=== PATIENT | female | born 1995 | race Hispanic/Latino ===

== ENCOUNTER 2017-12-24 13:28 | Emergency (ER) | payer BC ==
[2017-12-24 14:01] VITALS: BP 120/82; PULSE 66; RESP 16; TEMP 98.6; O2SAT 99; BMI 38.2
--- NOTE | 2017-12-24 14:27 | ED PDOC ---
Arrival/HPI - General Chief Complaint: Back Pain Time Seen by Provider: 12/24/17 14:21 Historian: Patient - History of Present Illness Narrative History of Present Illness (Text): 12/24/17 14:23 Pt is a 22 yr old female with a PMH of DDD since 2012, who presents today for LBP exacerbation while working yesterday. Pt states having herniated discs and associated sciatica that radiates to the knees of both lower extremities. States she takes Aleve at times and completed PT course but continues to have stiffness. Denies change in bladder or bowel, altered sensation, weakness of LE , fever, chills, sob, or any other complaints. Time/Duration: 24 hours Symptom Onset: Gradual Symptom Course: Unchanged Quality: Aching Severity Level: 8 Activities at Onset: Rest, Light Context: Work Past Medical History - Provider Review Nursing Documentation Reviewed: Yes - Travel History Have you recently traveled outside [place] w/in the past 3 mons?: No - Past History Past History: No Previous - Infectious Disease Hx of Infectious Diseases: None - Tetanus Immunization Tetanus Immunization: Up to Date - Reproductive Menopause: No - Past Medical History Past Medical History: No Previous - Cardiac Hx Cardiac Disorders: No - Pulmonary Hx Respiratory Disorders: No - Neurological Hx Neurological Disorder: No - HEENT Hx HEENT Disorder: No - Renal Hx Renal Disorder: No - Endocrine/Metabolic Hx Endocrine Disorders: No - Hematological/Oncological Hx Blood Disorders: No - Integumentary Hx Dermatological Disorder: No - Gastrointestinal Hx Gastrointestinal Disorders: No - Genitourinary/Gynecological Hx Sexually Transmitted Diseases: Yes (genital herpes) - Psychiatric Hx Depression: No Hx Emotional Abuse: No Hx Physical Abuse: No Hx Substance Use: Yes (marijuana) - Past Surgical History Past Surgical History: No Previous - Suicidal Assessment Feels Threatened In Home Enviroment: No Family/Social History - Physician Review Nursing Documentation Reviewed: Yes Family/Social History: Unknown Family HX Smoking Status: Former Smoker Hx Alcohol Use: Yes Hx Substance Use: Yes (marijuana) Hx Substance Use Treatment: No Allergies/Home Meds Allergies/Adverse Reactions: Allergies No Known Allergies Allergy (Verified 07/31/16 15:15) Home Medications: Home Meds Medication Instructions Recorded Confirmed Valacyclovir HCl [Valtrex] 500 mg PO BID 12/14/15 07/31/16 Review of Systems - Review of Systems Constitutional: Normal Eyes: Normal ENT: Normal Respiratory: Normal Cardiovascular: Normal Gastrointestinal: Normal Genitourinary Female: Normal Musculoskeletal: Arthralgias, Back Pain Skin: Normal Neurological: Normal Endocrine: Normal Hemo/Lymphatic: Normal Psychiatric: Normal Physical Exam Vital Signs Reviewed: Yes Vital Signs Temp Pulse Resp BP Pulse Ox 12/24/17 13:59 98.6 F 66 16 120/82 99 Temperature: Afebrile Blood Pressure: Normal Pulse: Regular Respiratory Rate: Normal Appearance: Positive for: Well-Appearing, Non-Toxic, Comfortable Pain Distress: Moderate Mental Status: Positive for: Alert and Oriented X 3 - Systems Exam Head: Present: Atraumatic, Normocephalic Conjunctiva: Present: Normal Mouth: Present: Moist Mucous Membranes Neck: Present: Normal Range of Motion Respiratory/Chest: Present: Clear to Auscultation, Good Air Exchange. No: Respiratory Distress, Accessory Muscle Use Cardiovascular: Present: Regular Rate and Rhythm, Normal S1, S2. No: Murmurs Abdomen: No: Tenderness, Distention, Peritoneal Signs Back: Present: Normal Inspection, Paraspinal Tenderness (Left SI jt pain on palpation; point tender to piriformis b/l), Pain with Leg Raise (left leg). No : CVA Tenderness, Midline Tenderness Upper Extremity: Present: Normal Inspection, Normal ROM, NORMAL PULSES. No: Cyanosis, Edema, Tenderness Lower Extremity: Present: Normal Inspection, NORMAL PULSES, Normal ROM. No: Edema, CALF TENDERNESS Neurological: Present: GCS=15, CN II-XII Intact, Speech Normal, Motor Func Grossly Intact, Normal Sensory Function Skin: Present: Warm, Dry, Normal Color. No: Rashes Psychiatric: Present: Alert, Oriented x 3, Normal Insight, Normal Concentration Medical Decision Making ED Course and Treatment: 12/24/17 14:27 Impression Pt is a 22 yr old female with a chronic LBP since 2012, who presents today for exacerbation while working yesterday. Working Dx: chronic low back pain due to DDD Plan Toradol 30 mg IM assess and dispo Progress Note Referral to spine and pain specialist Cheryl Ambulating well and VSS on d/c - Medication Orders Current Medication Orders: Discontinued Medications Ketorolac Tromethamine (Toradol) 30 mg IM STAT STA Stop: 12/24/17 14:22 Last Admin: 12/24/17 14:40 Dose: 30 mg MAR Pain Assessment Document 12/24/17 14:40 TA (Rec: 12/24/17 14:40 TA RECOVERED-LAP) Pain Reassessment Is this a pain reassessment? Yes Sleep Is patient sleeping during reassessment? No Presence of Pain Presence of Pain Yes Pain Scale Used Pain Scale Used Numeric Location Left, Right or Bilateral Bilateral Pain Location Body Site Generalized Description Description Constant IM Administration Charges Document 12/24/17 14:40 TA (Rec: 12/24/17 14:40 TA RECOVERED-LAP) Charges for Administration # of IM Administrations 1 Disposition/Present on Arrival - Present on Arrival Any Indicators Present on Arrival: Yes History of DVT/PE: No History of Uncontrolled Diabetes: No Urinary Catheter: No History of Decub. Ulcer: No History Surgical Site Infection Following: None - Disposition Have Diagnosis and Disposition been Completed?: Yes Diagnosis: Lumbago with sciatica, Bilateral sacroiliitis, Lumbar disc disease with radiculopathy Disposition: HOME/ ROUTINE Disposition Time: 14:30 Patient Plan: Discharge Condition: GOOD Discharge Instructions (ExitCare): Low Back Pain (DC) Additional Instructions: ANDRES GUPTA, thank you for letting us take care of you today. Your provider was Good Cole MD and MASOUD Baez and you were treated for LOW BACK PAIN. The emergency medical care you received today was directed at your acute symptoms. If you were prescribed any medication, please fill it and take as directed. It may take several days for your symptoms to resolve. Return to the Emergency Department if your symptoms worsen, do not improve, or if you have any other problems. PLEASE CONTACT THE SPINE AND PAIN SPECIALIST WE HAVE RECOMMENDED. TAKE CELEBREX DAILY TO ASSIST WITH PAIN AND INFLAMMATION Please contact your doctor or call one of the physicians/clinics you have been referred to that are listed on the Patient Visit Information form that is included in your discharge packet. Bring any paperwork you were given at discharge with you along with any medications you are taking to your follow up visit. Our treatment cannot replace ongoing medical care by a primary care provider outside of the emergency department. Thank you for allowing the [facility] team to be part of your care today. Prescriptions: Celecoxib [Celebrex] 200 mg PO DAILY 10 Days #10 capsule Referrals: Trevon Ha MD [Staff Provider] - Follow up with primary Forms: [facility] ([place]ian), WORK NOTE
== END 2017-12-24 14:44 | disposition home or self-care (01) ==
LOC: ED 13:28
DX: M51.16 Intervertebral disc disorders with radiculopathy, lumbar region (principal); M46.1 Sacroiliitis, not elsewhere classified
CPT/HCPCS: 96372; 99282; J1885